=== PATIENT | female | born 1975 | race Caucasian/White ===

== ENCOUNTER 2019-12-08 07:51 | Emergency (ER) | payer BC ==
[2019-12-08 08:04] VITALS: BP 124/65
[2019-12-08 08:17] LABS: Influenza A Molecular POSITIVE (Negative)
[2019-12-08] MEDS ORDERED: Ibuprofen TAB* 400 MG PO ONE (08:35)
[2019-12-08] MEDS ORDERED: Ondansetron ODT TAB* 4 MG PO ONE (08:35)
--- NOTE | 2019-12-08 08:39 | UC ---
FLU HPI - HPI Summary HPI Summary: 44-year-old woman comes in with influenza-like illness symptoms. Started 2 days ago with some chest congestion and feeling ill. Burning in her chest. He feels congestion in chest but she has not been able to bring up any sputum. Overnight she developed fever. She has bodyaches and nausea. She did take some [id number] medicine which up some with the symptoms. No history of COPD or asthma. 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 - History of Current Complaint Chief Complaint: UCGeneralIllness Stated Complaint: FEVER, RESPIRATORY ISSUE Time Seen by Provider: 12/08/19 08:25 Hx Last Menstrual Period: 09/23/12 Pain Intensity: 4 - Allergy/Home Medications Allergies/Adverse Reactions: Allergies Allergy/AdvReac Type Severity Reaction Status Date / Time ranitidine Allergy Intermediate Itching Verified 12/08/19 08:04 Home Medications: Home Medications Ondansetron ODT TAB* [Zofran 4 MG Odt TAB*] 4 mg PO Q6H PRN #10 tab.odt [Rx] Oseltamivir CAP* [Tamiflu CAP*] 75 mg PO BID #10 cap 12/08/19 [Rx] PMH/Surg Hx/FS Hx/Imm Hx Previously Healthy: Yes - Surgical History Surgical History: None - Family History Known Family History: Positive: Non-Contributory - Social History Alcohol Use: Rare Substance Use Type: None Smoking Status (MU): Never Smoked Tobacco Review of Systems All Other Systems Reviewed And Are Negative: Yes Constitutional: Positive: Fever, Chills, Other - SEE HPI Skin: Positive: Negative Eyes: Positive: Negative ENT: Positive: Nasal Discharge Respiratory: Positive: Other - SEE HPI Cardiovascular: Positive: Negative Gastrointestinal: Positive: Nausea Motor: Positive: Negative Neurovascular: Positive: Negative Musculoskeletal: Positive: Myalgia Neurological/Mental Status: Positive: Headache Psychological: Positive: Negative Is Patient Immunocompromised?: No Physical Exam Triage Information Reviewed: Yes Appearance: No Pain Distress, Well-Nourished, Ill-Appearing - MILD Vital Signs: Initial Vital Signs Temp 100.5 F 12/08/19 08:01 Pulse 103 12/08/19 08:01 Resp 18 12/08/19 08:01 BP 124/65 12/08/19 08:01 Pulse Ox 100 12/08/19 08:01 Vital Signs Reviewed: Yes Eye Exam: Normal Eyes: Positive: Conjunctiva Clear ENT: Positive: Pharynx normal Neck: Positive: Supple Respiratory: Positive: Lungs clear, Normal breath sounds, No respiratory distress Cardiovascular: Positive: RRR Musculoskeletal: Positive: Strength Intact, Other: - Patient has some contractures of her hands. Neurological: Positive: Alert, Muscle Tone Normal Psychological: Positive: Age Appropriate Behavior Skin Exam: Normal Flu Course/Dx - Differential Dx/Diagnosis Provider Diagnosis: Influenza Discharge ED - Sign-Out/Discharge Documenting (check all that apply): Patient Departure All imaging exams completed and their final reports reviewed: No Studies - Discharge Plan Condition: Stable Disposition: HOME Prescriptions: Ondansetron ODT TAB* [Zofran 4 MG Odt TAB*] 4 mg PO Q6H PRN #10 tab.odt PRN Reason: Nausea Oseltamivir CAP* [Tamiflu CAP*] 75 mg PO BID #10 cap Patient Education Materials: Influenza (ED) Referrals: Leah Keyes MD [Primary Care Provider] - Additional Instructions: FOLLOW UP WITH YOUR DOCTOR IF NOT COMPLETELY IMPROVED. GET REEVALUATED SOONER IF NOT IMPROVED OR WORSE OR ANY QUESTIONS OR CONCERNS. - Billing Disposition and Condition Condition: STABLE Disposition: Home
== END 2019-12-08 08:50 | disposition home or self-care (01) ==
LOC: UCEAST 07:51
DX: J11.1 Influenza due to unidentified influenza virus with other respiratory manifestations (principal); Z88.8 Allergy status to other drugs, medicaments and biological substances
CPT/HCPCS: 99212; A9270-GY; G0463